=== PATIENT | male | born 1965 | race Caucasian/White ===

== ENCOUNTER 2017-11-03 18:52 | Observation (INO) ==
[2017-11-03] MEDS ORDERED: Sod Chloride 0.9% Inj 1,000 ML IV.SIG ONE ×2 (19:08→21:53)
[2017-11-03] MEDS ORDERED: HYDROmorphone PF Inj 1 MG/ML Ampul IV.PUSH ONE (19:08)
--- NOTE | 2017-11-03 19:17 | ED ---
HPI General Chief Complaint: Abdominal Pain Stated Complaint: evac/GI Time Seen by Provider: 11/03/17 19:00 Source: patient, EMS and RN notes reviewed Mode of arrival: ambulatory Limitations: no limitations History of Present Illness HPI narrative: 52-year-old male presents to the emergency department via EMS for evaluation of periumbilical abdominal pain that started around 10 AM this morning with associated intractable vomiting. Patient reports 8/10 periumbilical abdominal pain. Patient reports history of pancreatitis. He states that he was told a few weeks ago in [place] that he needed a scope. He is on vacation from [place], arrived on , supposed to leave tomorrow. Patient is actively vomiting upon my exam. He denies any fevers. No chest pain or shortness breath. Denies any cardiac history. He does admit to drinking 6 beers yesterday, but states he does not drink often anymore. Reports history of feeding tube due to pancreatitis in the past. Moderate severity. MD complaint: abdominal pain Onset (ago): hour(s) (9) Pain Consistency: constant Location: periumbilical Severity: moderate Severity scale (1-10): 10 Quality: aching Radiation: none Relieving factors: nothing Exacerbating factors: nothing Context: history of similar episodes Associated symptoms: nausea and vomiting Related Data Home Medications Medication Instructions Recorded Confirmed acetaminophen [Acetaminophen Extra 1,500 mg Q6HR 11/03/17 11/03/17 Strength] gabapentin 300 mg PO DAILY 11/03/17 11/03/17 gabapentin 800 mg PO BID 11/03/17 11/03/17 pantoprazole [Protonix] 40 mg PO DAILY 11/03/17 11/03/17 potassium 800 mg Q6HR 11/03/17 11/03/17 promethazine [Phenergan] 11/03/17 trazodone 200 HS 11/03/17 Allergies Allergy/AdvReac Type Severity Reaction Status Date / Time morphine Allergy Hives Verified 11/03/17 19:07 Review of Systems Except as stated in HPI: all other systems reviewed are negative [facility] Medical History Medical History Pancreatitis (Acute) Left forearm fracture (Acute) Surgical History Surgical History History of hip replacement (Acute) Social History Social History Substance History: No History of Abuse Second Hand Smoke Exposure: No Smoking Status: Never smoker How Often Do You Have a Drink Containing Alcohol: 2 to 4 times a month Recent Travel in [facility] within the Last 8 Weeks: No Recent Out of Country Travel within the Last 8 Weeks: No Exam Narrative Exam Narrative: GENERAL: Well-nourished, well-developed male patient, afebrile. SKIN: Focused skin assessment warm/dry. HEAD: Normocephalic. Atraumatic. EYES: No scleral icterus. No injection or drainage. NECK: Supple, trachea midline. No JVD or lymphadenopathy. CARDIOVASCULAR: Regular rhythm without murmurs, gallops, or rubs. Patient is tachycardic with a HR of 114 RESPIRATORY: Breath sounds equal bilaterally. No accessory muscle use. Lung sounds are clear to aucultation. GASTROINTESTINAL: Abdomen soft and nondistended. He reports baylee-umblicial pain to palpation. Scar noted from previous feeding tube. MUSCULOSKELETAL: No cyanosis, or edema. BACK: Nontender without obvious deformity. No CVA tenderness. Course Reevaluation(s) Reevaluation #1: The patient was noted to have recurrent vomiting again during his emergency department evaluation. The patient will be given additional antiemetic IV. The patient was continued on a second liter of normal saline IV fluid bolus. Time: 00:26 Initial Documented Vital Signs Temperature 98.3 F 11/03/17 19:00 Pulse Rate 114 H 11/03/17 19:00 Respiratory Rate 20 11/03/17 19:00 Blood Pressure 166/96 H 11/03/17 19:00 Pulse Oximetry 99 11/03/17 19:00 Last Documented Vital Signs Temperature 98.7 F 11/04/17 05:38 Pulse Rate 108 H 11/04/17 12:28 Respiratory Rate 18 11/04/17 12:28 Blood Pressure 158/93 H 11/04/17 12:28 Pulse Oximetry 96 11/04/17 09:40 Medical Decision Making LIONEL Attestation LIONEL supervised visit: Yes Attestation: I, Dr. Harley, have reviewed the advance practice practitioner's documentation and am in agreement, met with the patient face to face, made the diagnosis, and the medical decision making was done by me. The patient was initially evaluated by Brea, the GLASS WORKER. Please see their complete history and physical. *My assessment and Findings: The patient presents with a history of abdominal pain associated with nausea vomiting that began this morning. The patient has visiting the area. The patient reports a history of pancreatitis. He reports that he continues to drink alcohol and did have 6 beers yesterday. During the course of the patient's emergency department visit, the patient's history, examination, and differential diagnosis were reviewed with the patient. The patient was placed on a youth nutritional monitor with oximetry and frequent blood pressure monitoring. The patient had IV access obtained and blood work sent for analysis. The patient was initially provided hydromorphone for pain, Compazine for nausea , and normal saline IV fluid bolus. The patient's laboratory studies were reviewed and remarkable for a white count of 10.7, platelets 339, differential remarkable for a neutrophil predominance of 88.3, hemoglobin 14.1,PT 10.1, PTT 21.2, chemistries remarkable for a total protein of 8.9, glucose 151, GFR of 88, CO2 17.8 with an anion gap of 20, BUN 4 , creatinine 0.91, AST is 46, ALT 29. Urinalysis is remarkable for a protein of 100, occult blood small, mucus few, ketones 80 or greater, culture not indicated. Radiology studies were reviewed and remarkable for a CT scan of the abdomen and pelvis that shows no dilated loops of small or large bowel, probable 1.3 cm pseudocyst in the uncinate process of the pancreas, no induration. of the peripancreatic fat. No evidence of free fluid. Small left-sided fat- containing inguinal hernia. A call was placed out to the [facility] hospitalist, Dr. Paulino for admission of this patient, however she requested that the lactic acid that is pending be resulted prior to the admission. The patient on examination is noted to be dehydrated with 80 or greater ketones in his urine, I suspect that the patient will require admission for observation and IV fluid resuscitation. The patient's lactic acid was elevated at 2.1 even after a liter of normal saline IV fluids was given. The patient will be continued on normal saline IV fluid resuscitation and pain control. The patient will be admitted for observation. The patient's case including history, pertinent physical examination findings, and laboratory studies were discussed with Dr. Paulino. The patient's results were discussed with the patient, including the plan of care. I explained that further testing and/ or monitoring is indicated based on the patient's history, examination, and/ or laboratory findings. Therefore, I recommended admission for additional evaluation. The patient expressed understanding and was agreeable with this plan. The patient was admitted to the hospital in stable condition and sent to a bed under the care of [facility] service. MDM Narrative Medical decision making narrative: 52 year old male presents to the emergency department for evaluation of abdominal pain, vomiting since 10 am with history of pancreatitis. He did drink 6 beers yesterday. IV access is obtained. CBC, CMP, Lipase, PTT, PT/INR are ordered and pending. CT abdomen/pelvis with IV contrast is ordered and pending. Patient states he is allergic to Morphine and normally gets Dilaudid for his pain. Patient is given Dilaudid 1 mg IV, compazine 10 mg IV, NS 1 liter IV bolus. CBC shows normal WBC 10.7, neutrophil percentage 88.3. CMP shows CO2 17.8, anion gap at 20, hyperglycemia 151, slightly elevated AST of 46. Lipase is 116. PTT is 21.2. PT/INR is 10.1/1.0. CT abdomen/pelvis shows mild dilated loops of small or large bowel, probable 1.3 cm pseudocyst in the dependent process of the pancreas, no induration of the peripancreatic fat, no evidence of free fluid, small left-sided fat-containing inguinal hernia. Patient is given 2nd L NS IV bolus. Lactic acid is ordered and is pending. Dr. Harley will review when back and will disposition patient as appropriate. Differential Diagnosis Differential Diagnosis: pancreatitis vs. diverticulitis vs. bowel obstructions vs. electrolyte abnormality vs. dehydration vs. UTI Lab Data Result diagrams: 11/03/17 19:25 11/04/17 06:26 Lab Results 11/03/17 11/03/17 11/03/17 Range/Units 19:25 19:25 19:25 WBC 10.7 (4.0-11.0) th/mm3 RBC 4.43 L (4.50-5.90) mil/mm3 Hgb 14.1 (13.0-17.0) gm/dL Hct 41.4 (39.0-51.0) % MCV 93.3 (80.0-100.0) fL MCH 31.8 (27.0-34.0) pg MCHC 34.1 (32.0-36.0) % RDW 17.1 (11.6-17.2) % Plt Count 339 (150-450) th/mm3 MPV 7.1 (7.0-11.0) fL Neut % (Auto) 88.3 H (16.0-70.0) % Lymph % (Auto) 6.4 L (9.0-44.0) % [place] % (Auto) 5.2 (0.0-8.0) % Eos % (Auto) 0.0 (0.0-4.0) % Baso % (Auto) 0.1 (0.0-2.0) % Neut # (Auto) 9.5 H (1.8-7.7) th/mm3 Lymph # (Auto) 0.7 L (1.0-4.8) th/mm3 [place] # (Auto) 0.6 (0.0-0.9) th/mm3 Eos # (Auto) 0.0 (0.0-0.4) th/mm3 Baso # (Auto) 0.0 (0.0-0.2) th/mm3 WBC Differential . Differential Comment Auto diff final PT 10.1 (9.8-11.6) sec INR 1.0 Ratio APTT 21.2 L (24.3-30.1) sec Sodium 143 (136-145) meq/L Potassium 3.9 (3.5-5.1) meq/L Chloride 105 (98-107) meq/L Carbon Dioxide 17.8 L (21.0-32.0) meq/L Anion Gap 20 H (5-15) meq/L BUN 4 L (7-18) mg/dL Creatinine 0.91 (0.60-1.30) mg/dL Estimated GFR 88 L (>89) mL/min Random Glucose 151 H (74-106) mg/dL Lactic Acid (0.4-2.0) mmol/L Calcium 9.9 (8.5-10.1) mg/dL Total Bilirubin 0.8 (0.2-1.0) mg/dL AST 46 H (15-37) U/L ALT 29 (12-78) U/L Alkaline Phosphatase 52 (45-117) U/L Total Protein 8.9 H (6.4-8.2) g/dL Albumin 4.9 (3.4-5.0) g/dL Lipase 116 (73-393) U/L Urine Color (Yellw/Straw) Urine Clarity (Clear) Urine pH (5.0-8.5) Ur Specific [place] (1.002-1.035) Urine Protein (Neg-Trace) mg/dL Urine Glucose (UA) (Negative) mg/dL Urine Ketones (Negative) mg/dL Urine Occult Blood (Negative) Urine Nitrate (Negative) Urine Bilirubin (Negative) Urine Urobilinogen (Less than 2) mg/dL Ur Leukocyte Esterase (Negative) Urine WBC (0-5) /hpf Urine Mucus (Occasional) /lpf Micro UA Comment Urine Culture Comments Urine Opiates Screen (Neg) Acetaminophen (10.0-30.0) mcg/mL Ur Barbiturates Screen (Neg) Ur Amphetamines Screen (Neg) U Benzodiazepines Scrn (Neg) Urine Cocaine Screen (Neg) U Cannabinoids Screen (Neg) Serum Alcohol (0-5) mg/dL 11/03/17 11/03/17 11/03/17 Range/Units 19:25 19:25 20:22 WBC (4.0-11.0) th/mm3 RBC (4.50-5.90) mil/mm3 Hgb (13.0-17.0) gm/dL Hct (39.0-51.0) % MCV (80.0-100.0) fL MCH (27.0-34.0) pg MCHC (32.0-36.0) % RDW (11.6-17.2) % Plt Count (150-450) th/mm3 MPV (7.0-11.0) fL Neut % (Auto) (16.0-70.0) % Lymph % (Auto) (9.0-44.0) % [place] % (Auto) (0.0-8.0) % Eos % (Auto) (0.0-4.0) % Baso % (Auto) (0.0-2.0) % Neut # (Auto) (1.8-7.7) th/mm3 Lymph # (Auto) (1.0-4.8) th/mm3 [place] # (Auto) (0.0-0.9) th/mm3 Eos # (Auto) (0.0-0.4) th/mm3 Baso # (Auto) (0.0-0.2) th/mm3 WBC Differential Differential Comment PT (9.8-11.6) sec INR Ratio APTT (24.3-30.1) sec Sodium (136-145) meq/L Potassium (3.5-5.1) meq/L Chloride (98-107) meq/L Carbon Dioxide (21.0-32.0) meq/L Anion Gap (5-15) meq/L BUN (7-18) mg/dL Creatinine (0.60-1.30) mg/dL Estimated GFR (>89) mL/min Random Glucose (74-106) mg/dL Lactic Acid (0.4-2.0) mmol/L Calcium (8.5-10.1) mg/dL Total Bilirubin (0.2-1.0) mg/dL AST (15-37) U/L ALT (12-78) U/L Alkaline Phosphatase (45-117) U/L Total Protein (6.4-8.2) g/dL Albumin (3.4-5.0) g/dL Lipase (73-393) U/L Urine Color Yellow (Yellw/Straw) Urine Clarity Clear (Clear) Urine pH 6.0 (5.0-8.5) Ur Specific [place] 1.016 (1.002-1.035) Urine Protein 100 H (Neg-Trace) mg/dL Urine Glucose (UA) 50 (Negative) mg/dL Urine Ketones 80 or greater (Negative) mg/dL Urine Occult Blood Small H (Negative) Urine Nitrate Negative (Negative) Urine Bilirubin Negative (Negative) Urine Urobilinogen Less than 2 (Less than 2) mg/dL Ur Leukocyte Esterase Negative (Negative) Urine WBC 1 (0-5) /hpf Urine Mucus Few H (Occasional) /lpf Micro UA Comment Culture not ind Urine Culture Comments Culture not ind Urine Opiates Screen (Neg) Acetaminophen Less than 2.0 L (10.0-30.0) mcg/mL Ur Barbiturates Screen (Neg) Ur Amphetamines Screen (Neg) U Benzodiazepines Scrn (Neg) Urine Cocaine Screen (Neg) U Cannabinoids Screen (Neg) Serum Alcohol Less than 3 (0-5) mg/dL 11/03/17 11/03/17 11/04/17 Range/Units 20:22 23:25 03:00 WBC (4.0-11.0) th/mm3 RBC (4.50-5.90) mil/mm3 Hgb (13.0-17.0) gm/dL Hct (39.0-51.0) % MCV (80.0-100.0) fL MCH (27.0-34.0) pg MCHC (32.0-36.0) % RDW (11.6-17.2) % Plt Count (150-450) th/mm3 MPV (7.0-11.0) fL Neut % (Auto) (16.0-70.0) % Lymph % (Auto) (9.0-44.0) % [place] % (Auto) (0.0-8.0) % Eos % (Auto) (0.0-4.0) % Baso % (Auto) (0.0-2.0) % Neut # (Auto) (1.8-7.7) th/mm3 Lymph # (Auto) (1.0-4.8) th/mm3 [place] # (Auto) (0.0-0.9) th/mm3 Eos # (Auto) (0.0-0.4) th/mm3 Baso # (Auto) (0.0-0.2) th/mm3 WBC Differential Differential Comment PT (9.8-11.6) sec INR Ratio APTT (24.3-30.1) sec Sodium (136-145) meq/L Potassium (3.5-5.1) meq/L Chloride (98-107) meq/L Carbon Dioxide (21.0-32.0) meq/L Anion Gap (5-15) meq/L BUN (7-18) mg/dL Creatinine (0.60-1.30) mg/dL Estimated GFR (>89) mL/min Random Glucose (74-106) mg/dL Lactic Acid 2.1 H 1.0 (0.4-2.0) mmol/L Calcium (8.5-10.1) mg/dL Total Bilirubin (0.2-1.0) mg/dL AST (15-37) U/L ALT (12-78) U/L Alkaline Phosphatase (45-117) U/L Total Protein (6.4-8.2) g/dL Albumin (3.4-5.0) g/dL Lipase (73-393) U/L Urine Color (Yellw/Straw) Urine Clarity (Clear) Urine pH (5.0-8.5) Ur Specific [place] (1.002-1.035) Urine Protein (Neg-Trace) mg/dL Urine Glucose (UA) (Negative) mg/dL Urine Ketones (Negative) mg/dL Urine Occult Blood (Negative) Urine Nitrate (Negative) Urine Bilirubin (Negative) Urine Urobilinogen (Less than 2) mg/dL Ur Leukocyte Esterase (Negative) Urine WBC (0-5) /hpf Urine Mucus (Occasional) /lpf Micro UA Comment Urine Culture Comments Urine Opiates Screen Neg (Neg) Acetaminophen (10.0-30.0) mcg/mL Ur Barbiturates Screen Neg (Neg) Ur Amphetamines Screen Neg (Neg) U Benzodiazepines Scrn Neg (Neg) Urine Cocaine Screen Neg (Neg) U Cannabinoids Screen Neg (Neg) Serum Alcohol (0-5) mg/dL 11/04/17 Range/Units 06:26 WBC (4.0-11.0) th/mm3 RBC (4.50-5.90) mil/mm3 Hgb (13.0-17.0) gm/dL Hct (39.0-51.0) % MCV (80.0-100.0) fL MCH (27.0-34.0) pg MCHC (32.0-36.0) % RDW (11.6-17.2) % Plt Count (150-450) th/mm3 MPV (7.0-11.0) fL Neut % (Auto) (16.0-70.0) % Lymph % (Auto) (9.0-44.0) % [place] % (Auto) (0.0-8.0) % Eos % (Auto) (0.0-4.0) % Baso % (Auto) (0.0-2.0) % Neut # (Auto) (1.8-7.7) th/mm3 Lymph # (Auto) (1.0-4.8) th/mm3 [place] # (Auto) (0.0-0.9) th/mm3 Eos # (Auto) (0.0-0.4) th/mm3 Baso # (Auto) (0.0-0.2) th/mm3 WBC Differential Differential Comment PT (9.8-11.6) sec INR Ratio APTT (24.3-30.1) sec Sodium 142 (136-145) meq/L Potassium 3.5 (3.5-5.1) meq/L Chloride 107 (98-107) meq/L Carbon Dioxide 24.7 (21.0-32.0) meq/L Anion Gap 10 (5-15) meq/L BUN 3 L (7-18) mg/dL Creatinine 0.74 (0.60-1.30) mg/dL Estimated GFR Greater than 89 (>89) mL/min Random Glucose 106 (74-106) mg/dL Lactic Acid (0.4-2.0) mmol/L Calcium 9.1 D (8.5-10.1) mg/dL Total Bilirubin 0.6 (0.2-1.0) mg/dL AST 41 H (15-37) U/L ALT 25 (12-78) U/L Alkaline Phosphatase 46 (45-117) U/L Total Protein 7.9 D (6.4-8.2) g/dL Albumin 4.1 D (3.4-5.0) g/dL Lipase (73-393) U/L Urine Color (Yellw/Straw) Urine Clarity (Clear) Urine pH (5.0-8.5) Ur Specific [place] (1.002-1.035) Urine Protein (Neg-Trace) mg/dL Urine Glucose (UA) (Negative) mg/dL Urine Ketones (Negative) mg/dL Urine Occult Blood (Negative) Urine Nitrate (Negative) Urine Bilirubin (Negative) Urine Urobilinogen (Less than 2) mg/dL Ur Leukocyte Esterase (Negative) Urine WBC (0-5) /hpf Urine Mucus (Occasional) /lpf Micro UA Comment Urine Culture Comments Urine Opiates Screen (Neg) Acetaminophen (10.0-30.0) mcg/mL Ur Barbiturates Screen (Neg) Ur Amphetamines Screen (Neg) U Benzodiazepines Scrn (Neg) Urine Cocaine Screen (Neg) U Cannabinoids Screen (Neg) Serum Alcohol (0-5) mg/dL Imaging Data Radiologist's impression: Abdomen/Pelvis CT 11/03/17 19:08 CONCLUSION: 1. No dilated loops of small or large bowel. 2. Probable 1.3 cm pseudocyst in the uncinate process of the pancreas. No induration of the peripancreatic fat. No evidence of free fluid. 3. Small left-sided fat-containing inguinal hernia. Discharge Plan Discharge Disposition Patient Disposition: 30 Still Patient Discharge Condition Condition: Good Discharge Order Discharge Orders: Discharge Order (Routine); Ordered 11/04/17 Ordered By: Marcial Naidu Discharge Details Anticipated Discharge Date: 11/04/17 Diagnosis: Abdominal pain, Vomiting, Dehydration Physicians Team ED Provider: Daphne Harley ED Midlevel Provider: [place] Primary Care Provider: Primary Care Marylou Najera Attending Provider: Marcial Naidu Status ED Status: Left Department Discharge Information Discharge Date/Time: 11/04/17 12:32
[2017-11-03] MEDS ORDERED: HYDROmorphone PF Inj 2 MG/ML Vial IV.PUSH ONE (19:21)
[2017-11-03 19:50] LABS: Baso % (Auto) 0.1 % (0.0-2.0); Hematocrit 41.4 % (39.0-51.0); Hemoglobin 14.1 gm/dL (13.0-17.0); Lymph # (Auto) 0.7 th/mm3 (1.0-4.8); Lymph % (Auto) 6.4 % (9.0-44.0); Mean Corpuscular HGB Conc 34.1 % (32.0-36.0); Mean Corpuscular Hemoglobin 31.8 pg (27.0-34.0); Mean Corpuscular Volume 93.3 fL (80.0-100.0); Mean Platelet Volume 7.1 fL (7.0-11.0); Mono # (Auto) 0.6 th/mm3 (0.0-0.9); Mono % (Auto) 5.2 % (0.0-8.0); Neut # (Auto) 9.5 th/mm3 (1.8-7.7); Neut % (Auto) 88.3 % (16.0-70.0); Platelet Count 339 th/mm3 (150-450); Red Blood Count 4.43 mil/mm3 (4.50-5.90); Red Cell Distribution Width 17.1 % (11.6-17.2); White Blood Count 10.7 th/mm3 (4.0-11.0)
[2017-11-03 20:03] LABS: Albumin 4.9 g/dL (3.4-5.0); Anion Gap 20 meq/L (5-15); Aspartate Aminotransferase 46 U/L (15-37); Blood Urea Nitrogen 4 mg/dL (7-18); Calcium 9.9 mg/dL (8.5-10.1); Carbon Dioxide 17.8 meq/L (21.0-32.0); Chloride 105 meq/L (98-107); Glomerular Filtration Rate 88 mL/min (>89); Glucose,Random 151 mg/dL (74-106); Lipase 116 U/L (73-393); Potassium 3.9 meq/L (3.5-5.1); Sodium 143 meq/L (136-145)
[2017-11-03 20:04] LABS: Alanine Aminotransferase 29 U/L (12-78)
[2017-11-03 20:06] LABS: Activated Partial Thrombo Time 21.2 sec (24.3-30.1); Alkaline Phosphatase 52 U/L (45-117); Prothrombin Time 10.1 sec (9.8-11.6); Total Protein 8.9 g/dL (6.4-8.2)
[2017-11-03 21:32] LABS: Bilirubin,Urine Negative (Negative); Clarity,Urine Clear (Clear); Color,Urine Yellow (Yellw/Straw); Glucose,Urine (UA) 50 mg/dL (Negative); Leukocyte Esterase,Urine Negative (Negative); Mucus,Urine Few /lpf (Occasional); Nitrite,Urine Negative (Negative); Specific Gravity,Urine 1.016 (1.002-1.035)
--- NOTE | 2017-11-03 21:33 | CT ---
EXAM DATE: 11/03/2017 8:47 PM EDT AGE/SEX: 52 years / Male INDICATIONS: Umbilical pain with nausea and vomiting. CLINICAL DATA: This is the patient's initial encounter. Patient reports that signs and symptoms have been present for 1 day and indicates a pain score of 4/10. MEDICAL/SURGICAL HISTORY: Pancreatitis. None. ORAL CONTRAST: No oral contrast ingested. RADIATION DOSE: 5.43 CTDI (mGy) COMPARISON: No prior exams available for comparison. TECHNIQUE: Multiple contiguous axial images were obtained through the abdomen and pelvis following b olus infusion of 96 ml Omnipaque 350 (iohexol) nonionic water-soluble contrast as a single exam dos e. No oral contrast ingested. Using automated exposure control and adjustment of the mA and/or kV ac cording to patient size, radiation dose was kept as low as reasonably achievable to obtain optimal di agnostic quality images. DICOM format image data is available electronically for review and comparis on. FINDINGS: Lower Lungs: The visualized lower lungs are clear. Liver: The liver has a homogeneous density without space-occupying lesion. The overall density of the liver is slightly less than the spleen suggesting steatosis. There is no dilation of the biliary sarai e. No calcified gallstones. Spleen: Homogeneous density without enlargement. Pancreas: Homogeneous density in the body and tail the pancreas. No pancreatic ductal dilatation. Th ere is a 1.3 cm round cyst in the uncinate process measuring 1.3 cm, possibly representing pseudocyst . No induration of the peripancreatic fat. Kidneys: Normal in size and shape. No evidence of mass or hydronephrosis. Adrenal Glands: Unremarkable. Aorta: The aorta and proximal iliac vessels are grossly unremarkable without aneurysmal dilation. Bowel/Mesentery: No dilated loops of small or large bowel. The appendix is identified in the signs l ateral to the right colon with the tip near the inferior margin of the liver. Abdominal Wall: Intact. Retroperitoneum: No evidence of adenopathy in the retrocrural, para-aortic, or deep pelvic regions. Bladder: Nondistended. No calcifications within the lumen. Reproductive Organs: No abnormal masses or calcifications seen. Inguinal: Small left-sided fat-containing inguinal hernia. Bony Structures: No acute findings. Lucency in the proximal right femur suggests prior intramedullar y juani and intertrochanteric nail. Focal indentation on the superior endplate of L3 suggests old compr ession fracture. No evidence of spondylolisthesis. CONCLUSION: 1. No dilated loops of small or large bowel. 2. Probable 1.3 cm pseudocyst in the uncinate process of the pancreas. No induration of the peripanc reatic fat. No evidence of free fluid. 3. Small left-sided fat-containing inguinal hernia. Electronically signed by: Rios Leonard MD 11/03/2017 9:32 PM EDT
[2017-11-04 01:18] LABS: Amphetamine Screen,Urine Neg (Neg); Barbiturate Screen,Urine Neg (Neg); Cannabinoid Screen,Urine Neg (Neg); Cocaine Screen,Urine Neg (Neg); Opiate Screen,Urine Neg (Neg)
[2017-11-04] MEDS ORDERED: Temazepam 15 MG Capsule PO PRN (01:42)
[2017-11-04] MEDS ORDERED: Bisacodyl 10 MG Supp RECTAL PRN (01:42)
[2017-11-04] MEDS ORDERED: LORazepam 1 MG Tablet PO PRN (01:43)
[2017-11-04] MEDS ORDERED: Haloperidol Inj 5 MG/ML Ampul IV.PUSH PRN (01:43)
[2017-11-04] MEDS ORDERED: Sod Chloride 0.9% Inj 1,000 ML IV.CONT SCH (02:00)
--- NOTE | 2017-11-04 02:50 | P.HP ---
History of Present Illness Service: [facility] Primary Care Physician: No Primary Care Physician Chief Complaint: Nausea/vomiting History of Present Illness: 52-year-old male with a past medical history significant for chronic pancreatitis presents the emergency department for evaluation of nausea/ vomiting. The patient reports his symptoms began at 10 AM. He states he drank a sixpack of beer yesterday. He endorses fevers/chills. Denies diarrhea. Positive abdominal pain in the epigastrium. The patient is on vacation from [place] and reports that aside from yesterday he has not drank any years. Per emergency department report, the patient's family states that he drinks daily. He denies any chest pain or shortness of breath. No lateralizing signs/ symptoms. Inpatient Certification: I certify that the inpatient services were ordered in accordance with Medicare regulations governing the order. This includes certification that hospital inpatient services are reasonable and necessary and in the case of services not specified as inpatient-only under 42 CFR 419.22(n), that they are appropriately provided as inpatient services in accordance to with the 2-midnight benchmark under 43 CFR 412.3(e) Review of Systems All other systems reviewed negative except as stated in HPI PMFSH - History History Provided By: Patient - Medical History Medical History: Medical History (Last Updated 11/03/17 @ 19:55 by Zeny Ni RN) Pancreatitis Left forearm fracture - Surgical History Surgical History: Surgical History (Last Updated 11/03/17 @ 19:53 by Zney Ni RN) History of hip replacement - Tobacco History Second Hand Smoke Exposure: No Tobacco Use In Past 30 Days: No Smoking Status: Never smoker - Alcohol History How Often Do You Have a Drink Containing Alcohol: 2 to 4 times a month - Substance Use History Substance History: No History of Abuse - Travel History Recent Travel in the [place] Within the Last 8 Weeks: No Recent Travel Out of the Country Within the Last 8 Weeks: No - Immunization History Tetanus Immunization: Unsure Hx Influenza Vaccine This Season: No Medications and Allergies Active Medications: Active Medications Al Hydroxide/Mg Hydroxide (Milk Of Elva Liq) 30 ml PO Q12H PRN PRN Reason: Mild Constipation Bisacodyl (Dulcolax Supp) 10 mg RECTAL DAILY PRN PRN Reason: SEVERE CONSITIPATION Flumazenil (Romazecon Inj) 0.2 mg IV.PUSH Q1M PRN PRN Reason: OVERSEDATION Folic Acid (Folic Acid) 1 mg PO DAILY [facility] Stop: 11/09/17 08:59 Haloperidol Lactate (Haldol Inj) 1 mg IV.PUSH Q15M PRN PRN Reason: for severe agitation Sodium Chloride (Ns Inj) 1,000 mls @ 100 mls/hr IV.CONT .Q10H [facility] Multivitamins 10 ml/ Folic (Acid 1 mg/ Sodium Chloride) 510.2 mls @ 125 mls/hr IV.SIG DAILY [facility] Stop: 11/09/17 08:59 Lactulose (Lactulose Liq) 30 ml PO DAILY PRN PRN Reason: SEVERE CONSITIPATION Lorazepam (Ativan) 1 mg PO Q4H PRN PRN Reason: for CIWA 8-10 Lorazepam (Ativan) 2 mg PO Q2H PRN PRN Reason: for CIWA 11-14 Lorazepam (Ativan Inj) 2 mg IV.PUSH Q2H PRN PRN Reason: for CIWA 11-14 Lorazepam (Ativan Inj) 2 mg IV.PUSH Q1H PRN PRN Reason: for CIWA 15-20 Lorazepam (Ativan Inj) 2 mg IV.PUSH Q15M PRN PRN Reason: for CIWA > 20 Lorazepam (Ativan Inj) 1 mg IV.PUSH Q4H PRN PRN Reason: for CIWA 8-10 Ondansetron HCl (Zofran Odt) 4 mg PO Q6H PRN PRN Reason: NAUSEA OR VOMITING Senna/Docusate Sodium (Tash-Colace) 1 tab PO BID [facility] Sennosides (Senokot) 17.2 mg PO Q12H PRN PRN Reason: Moderate Constipation Sodium Chloride (Ns Flush) 2 ml IV.FLUSH PRN PRN PRN Reason: FLUSH AFTER USING IV ACCESS Temazepam (Restoril) 15 mg PO HS PRN PRN Reason: INSOMNIA Thiamine HCl (Vitamin B1) 100 mg PO DAILY [facility] Allergies Allergy/AdvReac Type Severity Reaction Status Date / Time morphine Allergy Hives Verified 11/03/17 19:07 Home Medications Medication Instructions Recorded Confirmed Type acetaminophen [Acetaminophen Extra 1,500 mg Q6HR 11/03/17 11/03/17 History Strength] gabapentin 300 mg PO DAILY 11/03/17 11/03/17 History gabapentin 800 mg PO BID 11/03/17 11/03/17 History pantoprazole [Protonix] 40 mg PO DAILY 11/03/17 11/03/17 History potassium 800 mg Q6HR 11/03/17 11/03/17 History promethazine [Phenergan] 11/03/17 History trazodone 200 HS 11/03/17 History Exam Vital signs: Vital Signs 11/03/17 19:00 11/03/17 19:07 11/03/17 19:33 Temperature 98.3 F 98.3 F Pulse Rate 114 H 106 H 101 H Respiratory Rate 20 20 Blood Pressure 166/96 H 166/94 H Pulse Oximetry 99 100 11/04/17 00:33 Temperature Pulse Rate 105 H Respiratory Rate 16 Blood Pressure 160/89 H Pulse Oximetry 97 Intake & Output 11/03/17 11/03/17 11/04/17 06:59 18:59 06:59 Weight 72.575 kg Narrative: Gen.: No acute distress Head: Normocephalic. Atraumatic. EENT: Pupils equal round and reactive to light. Nose without drainage. Airway intact. Throat without injection. Cardiovascular: Regular rate and rhythm. No murmurs, rubs or gallops. Respiratory: Lungs clear to auscultation bilaterally. No wheezes or rhonchi. Abdomen: Soft, tender to palpation in the epigastrium, nondistended. No peritoneal signs. Musculoskeletal: No gross deformities. No edema. Skin: No obvious rashes or erythema. Neuro: Sensory and motor grossly intact. Cranial nerves II through XII grossly intact. Psych: Appropriate mood and affect Results - Labs CBC & Chem 7: 11/03/17 19:25 11/03/17 19:25 Labs: Laboratory Results - last 24 hr 11/03/17 11/03/17 11/03/17 19:25 19:25 19:25 WBC 10.7 RBC 4.43 L Hgb 14.1 Hct 41.4 MCV 93.3 MCH 31.8 MCHC 34.1 RDW 17.1 Plt Count 339 MPV 7.1 Neut % (Auto) 88.3 H Lymph % (Auto) 6.4 L [place] % (Auto) 5.2 Eos % (Auto) 0.0 Baso % (Auto) 0.1 Neut # (Auto) 9.5 H Lymph # (Auto) 0.7 L [place] # (Auto) 0.6 Eos # (Auto) 0.0 Baso # (Auto) 0.0 WBC Differential . Differential Comment Auto diff final PT 10.1 INR 1.0 APTT 21.2 L Sodium 143 Potassium 3.9 Chloride 105 Carbon Dioxide 17.8 L Anion Gap 20 H BUN 4 L Creatinine 0.91 Estimated GFR 88 L Random Glucose 151 H Lactic Acid Calcium 9.9 Total Bilirubin 0.8 AST 46 H ALT 29 Alkaline Phosphatase 52 Total Protein 8.9 H Albumin 4.9 Lipase 116 Urine Color Urine Clarity Urine pH Ur Specific [place] Urine Protein Urine Glucose (UA) Urine Ketones Urine Occult Blood Urine Nitrate Urine Bilirubin Urine Urobilinogen Ur Leukocyte Esterase Urine WBC Urine Mucus Micro UA Comment Urine Culture Comments Urine Opiates Screen Acetaminophen Ur Barbiturates Screen Ur Amphetamines Screen U Benzodiazepines Scrn Urine Cocaine Screen U Cannabinoids Screen Serum Alcohol 11/03/17 11/03/17 11/03/17 19:25 19:25 20:22 WBC RBC Hgb Hct MCV MCH MCHC RDW Plt Count MPV Neut % (Auto) Lymph % (Auto) [place] % (Auto) Eos % (Auto) Baso % (Auto) Neut # (Auto) Lymph # (Auto) [place] # (Auto) Eos # (Auto) Baso # (Auto) WBC Differential Differential Comment PT INR APTT Sodium Potassium Chloride Carbon Dioxide Anion Gap BUN Creatinine Estimated GFR Random Glucose Lactic Acid Calcium Total Bilirubin AST ALT Alkaline Phosphatase Total Protein Albumin Lipase Urine Color Yellow Urine Clarity Clear Urine pH 6.0 Ur Specific [place] 1.016 Urine Protein 100 H Urine Glucose (UA) 50 Urine Ketones 80 or greater Urine Occult Blood Small H Urine Nitrate Negative Urine Bilirubin Negative Urine Urobilinogen Less than 2 Ur Leukocyte Esterase Negative Urine WBC 1 Urine Mucus Few H Micro UA Comment Culture not ind Urine Culture Comments Culture not ind Urine Opiates Screen Acetaminophen Less than 2.0 L Ur Barbiturates Screen Ur Amphetamines Screen U Benzodiazepines Scrn Urine Cocaine Screen U Cannabinoids Screen Serum Alcohol Less than 3 11/03/17 11/03/17 20:22 23:25 WBC RBC Hgb Hct MCV MCH MCHC RDW Plt Count MPV Neut % (Auto) Lymph % (Auto) [place] % (Auto) Eos % (Auto) Baso % (Auto) Neut # (Auto) Lymph # (Auto) [place] # (Auto) Eos # (Auto) Baso # (Auto) WBC Differential Differential Comment PT INR APTT Sodium Potassium Chloride Carbon Dioxide Anion Gap BUN Creatinine Estimated GFR Random Glucose Lactic Acid 2.1 H Calcium Total Bilirubin AST ALT Alkaline Phosphatase Total Protein Albumin Lipase Urine Color Urine Clarity Urine pH Ur Specific [place] Urine Protein Urine Glucose (UA) Urine Ketones Urine Occult Blood Urine Nitrate Urine Bilirubin Urine Urobilinogen Ur Leukocyte Esterase Urine WBC Urine Mucus Micro UA Comment Urine Culture Comments Urine Opiates Screen Neg Acetaminophen Ur Barbiturates Screen Neg Ur Amphetamines Screen Neg U Benzodiazepines Scrn Neg Urine Cocaine Screen Neg U Cannabinoids Screen Neg Serum Alcohol - Imaging Impressions Abdomen/Pelvis CT 11/03/17 19:08 CONCLUSION: 1. No dilated loops of small or large bowel. 2. Probable 1.3 cm pseudocyst in the uncinate process of the pancreas. No induration of the peripancreatic fat. No evidence of free fluid. 3. Small left-sided fat-containing inguinal hernia. Caprini VTE Risk Assessment Caprini VTE Risk Assessment: No/Low Risk (score <= 1) Caprini Risk Assessment Model: Point Value = 1 Point Value = 2 Point Value = 3 Point Value = 5 Age 41-60 Minor surgery BMI > 25 kg/m2 Swollen legs Varicose veins or History of unexplained or recurrent spontaneous Oral contraceptives or hormone replacement Sepsis (< 1 month) Serious lung disease, including pneumonia (< 1 month) Abnormal pulmonary function Acute myocardial infarction Congestive heart failure (< 1 month) History of inflammatory bowel disease Medical patient at bed rest Age 61-74 Arthroscopic surgery Major open surgery (> 45 min) Laparoscopic surgery (> 45 min) Malignancy Confined to bed (> 72 hours) Immobilizing plaster cast Central venous access Age >= 75 History of VTE Family history of VTE Factor V Leiden Prothrombin [id number] Lupus anticoagulant Anticardiolipin antibodies Elevated serum homocysteine Heparin-induced thrombocytopenia Other congenital or acquired thrombophilia Stroke (< 1 month) Elective arthroplasty Hip, pelvis, or leg fracture Acute spinal cord injury (< 1 month) Prophylaxis Regimen: Total Risk Factor Score Risk Level Prophylaxis Regimen 0-1 Low Early ambulation 2 Moderate Order ONE of the following: *Sequential Compression Device (SCD) *Heparin 5000 units SQ BID 3-4 Higher Order ONE of the following medications: *Heparin 5000 units SQ TID *Enoxaparin/Lovenox 40 mg SQ daily (WT < 150 kg, CrCl > 30 mL/min) *Enoxaparin/Lovenox 30 mg SQ daily (WT < 150 kg, CrCl > 10-29 mL/min) *Enoxaparin/Lovenox 30 mg SQ BID (WT < 150 kg, CrCl > 30 mL/min) AND/OR *Sequential Compression Device (SCD) 5 or more Highest Order ONE of the following medications: *Heparin 5000 units SQ TID (Preferred with Epidurals) *Enoxaparin/Lovenox 40 mg SQ daily (WT < 150 kg, CrCl > 30 mL/min) *Enoxaparin/Lovenox 30 mg SQ daily (WT < 150 kg, CrCl > 10-29 mL/min) *Enoxaparin/Lovenox 30 mg SQ BID (WT < 150 kg, CrCl > 30 mL/min) AND *Sequential Compression Device (SCD) Assessment and Plan - Plan Assessment/plan: 1. Abdominal pain/nausea/vomiting/chronic pancreatitis CT of the abdomen/pelvis shows a probable 1.3 cm pseudocyst without free fluid or induration of the peripancreatic fat Lipase within normal limits Unclear etiology: infectious versus pancreatitis flare Clear liquid diet IV fluid hydration Supportive care 2. ? Alcohol abuse Patient reports drinking a sixpack yesterday and states he has not had any alcohol for several years prior to yesterday Family reports daily alcohol intake [facility] protocol Monitor for signs of withdrawal FEN Clear liquid diet Electrolytes: Monitor and replete as needed NS at 100 cc/hour
[2017-11-04 05:42] VITALS: TEMP 98.7
[2017-11-04 08:07] LABS: Alanine Aminotransferase 25 U/L (12-78); Albumin 4.1 g/dL (3.4-5.0); Alkaline Phosphatase 46 U/L (45-117); Anion Gap 10 meq/L (5-15); Aspartate Aminotransferase 41 U/L (15-37); Blood Urea Nitrogen 3 mg/dL (7-18); Calcium 9.1 mg/dL (8.5-10.1); Carbon Dioxide 24.7 meq/L (21.0-32.0); Chloride 107 meq/L (98-107); Glomerular Filtration Rate Greater Than 89 mL/min (>89); Glucose,Random 106 mg/dL (74-106); Potassium 3.5 meq/L (3.5-5.1); Sodium 142 meq/L (136-145); Total Protein 7.9 g/dL (6.4-8.2)
[2017-11-04] MEDS ORDERED: Senna/Docusate Sodium 8.6/50 MG Tablet PO SCH (09:00)
[2017-11-04] MEDS ORDERED: Multivitamin Inj 10 ML, Folic Acid Inj 1 MG in Sodium Chlor 0.9% Inj 500 ML IV.SIG SCH (09:00)
[2017-11-04] MEDS ORDERED: Folic Acid 1 MG Tablet PO SCH (09:00)
[2017-11-04 10:48] VITALS: O2SAT 96
[2017-11-04] MEDS ORDERED: Gabapentin 400 MG Capsule PO SCH (12:00)
[2017-11-04 12:31] VITALS: BP 158/93; PULSE 108; RESP 18
== END 2017-11-04 12:33 | disposition home or self-care (01) ==
LOC: NEDH 18:52 → NEPE 18:52 → NEDA 18:52 → NEDH 11-04 06:18
PROVIDERS: ADMIT Internal Medicine; ATTEND Internal Medicine
DX: E86.0 Dehydration; K86.1 Other chronic pancreatitis; R00.0 Tachycardia, unspecified; F10.10 Alcohol abuse, uncomplicated; K40.90 Unilateral inguinal hernia, without obstruction or gangrene, not specified as recurrent; Y90.0 Blood alcohol level of less than 20 mg/100 ml